=== PATIENT | male | born 1995 | race Caucasian/White ===

== ENCOUNTER 2020-06-07 08:11 | Emergency (ER) | payer BC ==
[2020-06-07 08:16] VITALS: TEMP 99; BMI 25.5
--- OUTSIDE RECORDS SUMMARY | 2020-06-07 08:26 | XMS ---
:[address] [facility] Support Name Relationship Address Phone TRACIE Unavailable Unavailable Unavailable RG MOTHER [address] [place] [address] Re-disclosure Warning The records that you are about to access may contain information from federally- assisted alcohol or drug abuse programs. If such information is present, then the following federally mandated warning applies: This information has been disclosed to you from records protected by federal confidentiality rules (42 CFR part 2). The federal rules prohibit you from making any further disclosure of this information unless further disclosure is expressly permitted by the written consent of the person to whom it pertains or as otherwise permitted by 42 CFR part 2. A general authorization for the release of medical or other information is NOT sufficient for this purpose. The Federal rules restrict any use of the information to criminally investigate or prosecute any alcohol or drug abuse patient.The records that you are about to access may contain highly sensitive health information, the redisclosure of which is protected by Article 27-F of the [facility] Public Health law. If you continue you may haveaccess to information: Regarding HIV / AIDS; Provided by facilities licensed or operated by the [facility] Office of Mental Health; or Provided by the [facility] Office for People With Developmental Disabilities. If such information is present, then the following [facility] mandated warning applies: This information has been disclosed to you from confidential records which are protected by state law. State law prohibits you from making any further disclosure of this information without the specific written consent of the person to whom it pertains, or as otherwise permitted by law. Any unauthorized further disclosure in violation of state law may result in a fine or usp sentence or both. A general authorization for the release of medical or other information is NOT sufficient authorization for further disclosure. Insurance Providers Payer name Policy type Policy ID Covered Covered republican's Policy P manuel / Coverage republican ID relationship to Diaz [employer] ormation type diaz SELF PAY SP INSURANCE Results ID Date Data Source [id number] 05/29/2020 12:00:00 AM EDT [facility] Name Value Range Interpretation Code Description Data Archana e(s) Supporting Document(s ) 2019-nCoV [facility] RNA XXX AARTI+probe- Imp This lab was ordered by [facility] CELIS and reported by [facility] Procedure
[2020-06-07] MEDS ORDERED: SODIUM CHLORIDE 1,000 ML IV ONE (08:32)
--- NOTE | 2020-06-07 08:39 | PDOC ---
History of Present Illness - General Chief Complaint: Seizure Stated Complaint: POSSIBLE SEIZURE Time Seen by Provider: 06/07/20 08:14 History Source: Patient Exam Limitations: No Limitations - History of Present Illness Initial Comments: 06/07/20 08:32 25y M hx of well contolled seizures (on Keppra 750mg BID) BIBEMS presents with episode of seizure. The patient has no recollection of the seizure, but mom recalls hearing a thump this morning, went into his room and saw him on the ground stiff/shaking with his eyes open. She thinks the episode lasted 3-5 minutes. notse that he was confused and wobbly afterwards. The pt does nto recall anything until waking up in his bed. There was no tongue biting or urinary incontinence. Pt endorses taking his medications consistently. notse he has been sleeping ~8 hrs a day, which is his normal. Denies current headache, vision changes, n/v, neck pain, back pain, cp, extremity pain, abd pain, focal numbnes/tingling/wekness, dairrhea, dysuria, fever/chills. His last selizure was 5 years ago, has been on 750mg BID for the past year. No recent med change otherwise. 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 Neurologist: Dr. Stanford ([facility]) 06/07/20 08:47 Past History - Medical History Allergies/Adverse Reactions: Allergies Allergy/AdvReac Type Severity Reaction Status Date / Time No Known Allergies Allergy Verified 06/07/20 08:13 Home Medications: Ambulatory Orders Levetiracetam 750 mg PO BID tablet 03/24/14 COPD: No Seizures: Yes - Psycho-Social/Smoking History Smoking Status: No Smoking History: Never smoked Number of Cigarettes Smoked Daily: 0 - Substance Abuse Hx (Audit-C & DAST Scrn) How often the patient has a drink containing alcohol: Monthly or less Number of drinks the patient has on a typical day: 1 or 2 How often the patient has six or more drinks on one occasion: Never Score: In Men: 4 or > Positive; In Women: 3 or > Positive: 1 Screen Result (Pos requires Nsg. Audit-10AR): Negative In the last yr the pt used illegal drug/Rx for NonMed reason: No Score: Yes response is considered Positive: 0 Screen Result (Positive result requires Nsg. DAST-10): Negative Review of Systems - Review of Systems Able to Perform ROS?: Yes Comments:: 06/07/20 08:39 Constitutional - no reported Fever, Chills, HEENT: no reported vision changes, sore throat Respiratory: no reported cough, sob, hemoptysis Cardiac: no reported chest pain, palpitations, light headedness, leg swelling Abd/GI: no reported abd pain, nausea, vomiting, blood per rectum, melena, diarrhea : no reported dysuria, frequency, discharge Musculskelatal - no reported back pain, joint swelling skin - no reported bruising, erythema, rash neurological: +seizure no reported headache, numbness, focal weakness, tingling, ataxia, hematologic: no reported easy bruising, easy bleeding *Physical Exam - Vital Signs Last Vital Signs Temp Pulse Resp BP Pulse Ox 99.0 F 94 H 16 133/85 100 06/07/20 08:12 06/07/20 08:12 06/07/20 08:12 06/07/20 08:12 06/07/20 08:12 - Physical Exam 06/07/20 08:47 GENERAL: The patient is awake, alert, and fully oriented, Nontoxic - in no acute distress. HEAD: Normocephalic, contusion to the alteral aspect of L supraorbital ridge EYES: extraocular movements intact, sclera anicteric, conjunctiva clear. ENT: Normal voice, Moist mucous membranes. abrasion to nsasl bridge without any crepitus, tenderness to plapation NECK: Normal range of motion, supple LUNGS: Breath sounds equal, clear to auscultation bilaterally. No wheezes, no rhonchi, no rales. HEART: Regular rate and rhythm, normal S1 and S2 without murmur, rub or gallop. ABDOMEN: Soft, nontender, No guarding, no rebound. No CVA tenderness EXTREMITIES: Normal range of motion, no edema. NEUROLOGICAL: No facial assymetry, Normal speech, PSYCH: Normal mood, normal affect. SKIN: Warm, Dry, normal turgor, Heart Score/ECG Review - ECG Impressions Comment:: 06/07/20 08:57 Twelve-lead EKG was performed and reviewed by me. There is normal sinus rhythm with a normal rate. rate of 61 The axis is normal. The intervals are normal. benign early repolarization ED Treatment Course - LABORATORY CBC & Chemistry Diagram: 06/07/20 08:25 06/07/20 08:32 - ADDITIONAL ORDERS Additional order review: Laboratory Results 06/07/20 08:17 POC Glucometer 130 06/07/20 08:17 POC Glucometer 130 Medical Decision Making - Medical Decision Making 06/07/20 08:49 25y M hx of seizures sp seizure episode, stopped psontaneously. compliant wit meds. no obvious trigger exam non focal beside minor trauma to head. low suspicion for fx/bleed - feel that risk of CT outweighs benefit of minor head trauma. will obtain basic labs, bgm will give fluids dw his neurologist - requests increasing meds from 750 to 1000mg BID as no obvious trigger. will have him fu with neuro if labs normal and pt feeling better will continue to monitor. 06/07/20 09:16 pt feeling improved. labs reviewed will dc with outpatinet fu return precautions were discussed I discussed the physical exam findings, ancillary test results and final diagnoses with the patient. I answered all of the patient's questions. The patient was satisfied with the care received and felt comfortable with the discharge plan and treatment plan. The patient will call their primary care physician within 24 hours to arrange follow-up and will return to the Emergency Department with any new, persistent or worsening symptoms. Discharge - Discharge Information Problems reviewed: Yes Clinical Impression/Diagnosis: Seizure Facial contusion Qualifiers: Encounter type: initial encounter Qualified Code(s): S00.83XA - Contusion of other part of head, initial encounter Nasal abrasion Qualifiers: Encounter type: initial encounter Qualified Code(s): S00.31XA - Abrasion of nose, initial encounter Condition: Improved Disposition: HOME - Admission No - Follow up/Referral Referrals: Brit Stanford [Other] - Patient Discharge Instructions Patient Printed Discharge Instructions: DI for Seizure Disorder -- Adult Additional Instructions: Increase your keppra level to 1000mg twice daily. The prescription was sent by your neurologist. Apply bacitracin twice daily to your cut until it heals. Keep it clean with soap and water. Return to the emergency department immediately with ANY new, persistent or worsening symptoms. You MUST call and follow up with Dr. Stanford within 1 week for further evaluation of your symptoms. Results were discussed with you. Please make sure your doctor reviews the results of your emergency evaluation. Your Emergency Department vis it is not complete without a follow up with your doctor. Print Language: [facility] - Post Discharge Activity
[2020-06-07 09:01] LABS: BASO % 1.1 % (0-2.0); EOS % 3.7 % (0-4.5); HEMATOCRIT 46.8 % (35.4-49); HEMOGLOBIN 15.6 GM/dl (11.7-16.9); LYMPH % 39.2 % (8-40); MCHC 33.4 g/dl (32.0-35.9); MEAN CELL VOLUME 89.8 fl (80-96); MEAN PLT VOLUME 9.4 fl (7.5-11.1); MONO % 8.4 % (3.8-10.2); NEUT % 47.6 % (42.8-82.8); PLATELET COUNT 278 K/MM3 (134-434); RBC 5.22 M/mm3 (4.00-5.60); RDW 12.1 % (11.9-15.9); WHITE BLOOD COUNT 7.2 K/mm3 (4.0-10.8)
[2020-06-07 09:07] LABS: ALBUMIN 4.7 g/dl (3.4-5.0); BILIRUBIN,TOTAL 1.1 mg/dl (0.2-1); CALCIUM 9.2 mg/dl (8.5-10); CREATININE 1.1 mg/dl (0.55-1.3); POTASSIUM 3.6 mmol/L (3.5-5.1); TOT PROT 7.9 g/dl (6.4-8.2)
[2020-06-07 09:21] VITALS: BP 122/79; PULSE 69
[2020-06-07 10:17] LABS: EPITHELIAL CELLS FEW /hpf
--- NOTE | 2020-06-07 14:09 | EKG ---
Test Reason : Blood Pressure : / mmHG Vent. Rate : 061 BPM Atrial Rate : 061 BPM P-R Int : 112 ms QRS Dur : 094 ms QT Int : 442 ms P-R-T Axes : 037 078 061 degrees QTc Int : 444 ms NORMAL SINUS RHYTHM EARLY REPOLARIZATION NORMAL ECG WHEN COMPARED WITH ECG OF 01-MAY-2011 10:37, QT HAS LENGTHENED Confirmed by ERIKA SOTO MD ([id number]) on 06/07/2020 2:08:59 PM Referred By: TERRELL GONZALEZ Confirmed By:ERIKA SOTO MD
== END 2020-06-07 09:28 | disposition home or self-care (01) ==
LOC: FER 08:11
PROC: 3E0337Z Introduction of Electrolytic and Water Balance Substance into Peripheral Vein, Percutaneous Approach (ICD-10-PCS; principal; 2020-06-07)
DX: R56.9 Unspecified convulsions (principal); S00.83XA Contusion of other part of head, initial encounter; S00.31XA Abrasion of nose, initial encounter
CPT/HCPCS: 36415; 80053; 80177; 81003; 81015; 82962; 85025; 93005; 99285-25

== ENCOUNTER 2021-07-05 20:34 | Emergency (ER) | payer BC ==
[2021-07-05 20:44] VITALS: BP 142/87; PULSE 88; TEMP 98.6; BMI 25.1
[2021-07-05] MEDS ORDERED: DIPHTH,PERTUSS(ACELL),TET 0.5 ML DISP.SYRIN IM ONE ×2 (21:38→21:40)
== END 2021-07-05 21:47 | disposition home or self-care (01) ==
LOC: FER 20:34
PROC: 3E0234Z Introduction of Serum, Toxoid and Vaccine into Muscle, Percutaneous Approach (ICD-10-PCS; principal; 2021-07-05)
DX: G40.89 Other seizures (principal)
CPT/HCPCS: 36415; 73140-TC-LT-FY; 80177; 82962; 90715; 99284-25